=== PATIENT | male | born 1955 | race Native Hawaiian/Other Pacific Islander ===

== ENCOUNTER 2016-06-13 08:20 | Emergency (ER) | payer MEDICAID ==
[~2016-06-13] VITALS: Ht 177.8 cm; Wt 85.0 kg
[~2016-06-13 08:20] MED LIST: ALBU6.7H INH; ALPR.25 PO; AMLO5TAB96 PO; ASPI81TA82 PO; AURA1.4S RIGHT EAR; AZAT50 PO; CALCTAB80 PO; HYDR-3533 PO; KETOC200 PO; NEOR25 PO; PERC7.5T13 PO; PRED20 PO; PRED5 PO
[2016-06-13 08:21] VITALS: BP 147/70; PULSE 93; RESP 16; TEMP 98.5; O2SAT 95
[2016-06-13] MEDS ORDERED: ACETAMINOPHEN 325 MG TAB PO ONE (09:15)
[2016-06-13] MEDS ORDERED: RESP: ALBUTEROL 2.5 MG/IPRATROPIUM 0.5 MG NEB (SCH) INH ONE (09:15)
--- NOTE | 2016-06-13 09:21 | PD ---
HPI Chief Complaint: Cold / Flu Symptoms Time Seen by Provider: 09:14 Travel History International Travel<30 days: No Contact w/Intl Traveler<30days: No Traveled to known affect area: No History of Present Illness HPI 60 year old male presents to the emergency department for evaluation of cold symptoms for 2 days. Patient reports cough, congestion, body aches, chills, but no documented fevers. No abdominal pain, nausea, or vomiting. Patient does report a history of pneumonia a few years ago. He has a history of renal transplant, COPD, ACS with stent placement, hypertension. He has a current tobacco user. Patient denies any sore throat or ear pain. No other complaints at this time. PFSH Past Medical History Hx Anticoagulant Therapy: Yes (aspirin) Arthritis: Yes Autoimmune Disease: No Blood Disorders: No Heart Rhythm Problems: No Cancer: No Cardiac Catheterization: Yes Cardiovascular Problems: Yes (stentx2) High Cholesterol: No Chest Pain: Yes Congestive Heart Failure: No Coronary Artery Disease: Yes Diabetes: No Diminished Hearing: No Endocrine: No Genitourinary: Yes Hypertension: Yes Immune Disorder: No Kidney Stones: No Musculoskeletal: Yes (L KNEE) Neurologic: No Psychiatric: No Reproductive: No Respiratory: Yes (PNEUMONIA 2008) Immunizations Current: Yes Myocardial Infarction: No Renal Failure: Yes (KIDNEY TRANSPLANT ) Thyroid Disease: No Past Surgical History Abdominal Surgery: No AICD: No Arteriovenous Shunt: Yes (BILAT. FOREARMS NON-FUNCTIONAL SINCE AFTER TRANSPLANT ) Cardiac Surgery: Yes (CARDIAC STINT) Coronary Stent: Yes (2008, 2009) Ear Surgery: No Endocrine Surgery: Yes Eye Surgery: No Genitourinary Surgery: Yes (RIGHT KIDNEY TRANSPLANT ) Gynecologic Surgery: No Insulin Pump: No Joint Replacement: No Oral Surgery: No Pacemaker: No Thoracic Surgery: No Other Surgery: Yes (KIDNEY TRANSPLANT RIGHT 13 YRS AGO ) Social History Alcohol Use: Yes (GLASS WINE/DAY) Tobacco Use: Yes ( cigar 1 x a day) Substance Use: No Allergies-Medications (Allergen,Severity, Reaction): Coded Allergies: Penicillin (Verified Allergy, Severe, 06/13/16) UNKNOWN REACTION Reported Meds & Prescriptions Reported Meds & Active Scripts Active Tamiflu (Oseltamivir Phosphate) 75 Mg Cap 75 Mg PO BID 5 Days Prednisone 20 Mg Tab 20 Mg PO DIRECTED 2 tabs twice a day x 3 days, then 1 tab daily x 3 days, then 1/2 tab daily x 3 days Proventil Hfa 6.7 GM Inh (Albuterol Sulfate) 90 Mcg/Act Aer 2 Puff INH Q4-6H PRN Lortab (Hydrocodone-Acetaminophen) 5-325 Mg Tab 1 Tab PO Q4H PRN Auralgan1 Ml 1 Ml Li 2 Drop RIGHT EAR Q6H PRN Reported Xanax 0.25 Mg (Alprazolam) 0.25 Mg Tab 0.25 Mg PO BID PRN Aspir-81 (Aspirin) 81 Mg Tab 81 Mg PO DAILY Calcium 1000 + D 1 Tab PO DAILY Percocet 7.5-325 mg (Oxycodone-Acetaminophen 7.5-325 mg) 1 Tab 1 Tab PO Q6HPRN FOR PAIN [id number] Mg 200 Mg Tab 200 Mg PO DAILY Neoral (Cyclosporine) 25 Mg Cap 25 Mg PO EVERY OTHER DAY Imuran (Azathioprine) 50 Mg Tab 75 Mg PO DAILY Norvasc (Amlodipine Besylate) 5 Mg Tab 2.5 Mg PO DAILY Deltasone 5 mg Tab (Prednisone) 5 Mg Tab 5 Mg PO DAILY Review of Systems Except as stated in HPI: all other systems reviewed are Neg Physical Exam Narrative GENERAL: Well-developed well-nourished male patient, ambulatory and in no acute distress. Afebrile. SKIN: Warm and dry. HEAD: Normocephalic. Atraumatic. ENT: Mucosa pink and moist. No erythema or exudates. No uvular edema. No uvular , palatal, or tonsillar deviation. Airway patent. Nasal turbinates appear normal without nasal blood, purulent drainage or septal hematoma. Bilateral tympanic membranes are clear without erythema or perforation. EYES: No scleral icterus. No injection or drainage. NECK: Supple, trachea midline. No JVD or lymphadenopathy. CARDIOVASCULAR: Regular rate and rhythm without murmurs, gallops, or rubs. RESPIRATORY: Breath sounds equal bilaterally. No accessory muscle use. Lungs sounds with slight expiratory wheezes noted throughout. GASTROINTESTINAL: Abdomen soft, non-tender, nondistended. MUSCULOSKELETAL: No cyanosis, or edema. BACK: Nontender without obvious deformity. No CVA tenderness. Data Data Last Documented VS Vital Signs Date Time Temp Pulse Resp B/P Pulse Ox O2 Delivery O2 Flow Rate FiO2 06/13/16 09:37 98 21 06/13/16 08:21 98.5 93 16 147/70 Orders Chest, Pa & Lat (06/13/16 ) Influenzae A/B Antigen (06/13/16 09:11) Acetaminophen (Tylenol) (06/13/16 09:15) Albuterol-Ipratropium Neb (Duoneb Neb) (06/13/16 09:15) [facility] [place] Medical Decision Making Medical Screen Exam Complete: Yes Emergency Medical Condition: Yes Medical Record Reviewed: Yes Interpretation(s) chest x-ray - CONCLUSION: Normal examination. Differential Diagnosis COPD exacerbation versus pneumonia versus bronchitis versus URI versus influenza Narrative Course 60-year-old male presents to the emergency department for evaluation symptoms for 2 days. Patient does have history of COPD, renal transplant, pneumonia. Patient is given DuoNeb 1. Chest x-ray is ordered and pending. Influenza is ordered and pending. Chest x-ray is normal. Influenza is positive for influenza B. Patient appears well physical exam and vital signs are stable. Patient was discharged with a prescription for Tamiflu. He is instructed to return immediately for any worsening symptoms. Patient is agreeable to this plan. Patient states he is out of his albuterol inhaler at home. He will be discharged with a prescription for an albuterol inhaler as well. Diagnosis Primary Impression: Influenza B Referrals: Primary Care Physician call for appointment Patient Instructions: General Instructions, Influenza (ED) Additional Instructions: Take Tamiflu as directed. Follow up with your primary care physician. [id number] Tylenol every 4 hours as needed. Return to the emergency department immediately for any worsening symptoms. Med/Other Pt SpecificInfo: Prescription(s) given Scripts Albuterol 18 GM Inh (Ventolin Hfa 18 GM Inh)90 Mcg/Act Aer1 Puff INH Q4H PRN ( SHORTNESS OF BREATH) #1 INHALER Ref 0 Prov:Radha Stafford 06/13/16 Oseltamivir (Tamiflu)75 Mg Cap75 Mg PO BID 5 Days Ref 0 Prov:Radha Stafford 06/13/16 Disposition: 01 DISCHARGE HOME Condition: Stable Radha Stafford Jun 13, 2016 09:21
[2016-06-13 09:37] VITALS: O2SAT 98
--- NOTE | 2016-06-13 09:43 | RADRPT ---
EXAM DATE/TIME: 06/13/2016 09:36 [facility] COMPARISON: CHEST SINGLE AP, April 02, 2015, 3:15. INDICATIONS : Cough. MEDICAL HISTORY : None. SURGICAL HISTORY : None. ENCOUNTER: Initial ACUITY: 1 day PAIN SCORE: 0/10 LOCATION: Bilateral chest FINDINGS: PA and lateral views of the chest demonstrate the lungs to be symmetrically aerated without evidence of mass, infiltrate or effusion. The cardiomediastinal contours are unremarkable. Osseous structure s are intact. CONCLUSION: Normal examination. Juliano Bautista MD on June 13, 2016 at 9:41 Board Certified Radiologist. This report was verified electronically.
[2016-06-13] MEDS ORDERED: OSEL75 PO (09:46)
[2016-06-13] MEDS ORDERED: VENTAER INH (09:51)
== END 2016-06-13 10:00 | disposition home or self-care (01) ==
LOC: NEPB 08:20
DX: J10.1 Influenza due to other identified influenza virus with other respiratory manifestations (principal); F17.290 Nicotine dependence, other tobacco product, uncomplicated
CPT/HCPCS: 71020; 87804; 94664; 99283